=== PATIENT | male | born 1950 | race Caucasian/White ===

== ENCOUNTER 2020-03-28 15:08 | Observation (INO) | payer MEDICARE, BC ==
--- NOTE | 2020-03-28 15:36 | EDM.PDOC ---
ED HPI GENERAL MEDICAL PROBLEM - General Chief Complaint: General Stated Complaint: tachycardia Time Seen by Provider: 03/28/20 15:30 Source of Information: Reports: Patient History Limitations: Reports: No Limitations - History of Present Illness INITIAL COMMENTS - FREE TEXT/NARRATIVE: Patient comes to ER via EMS for complaint of sudden feeling of dizziness/nausea/sweaty that started around 12:30. No history of NV but does have history of high cholesterol/Afib/HTN. BP usually is good, noted today to be up to 141/92 when he checked it while not feeling good. Symptoms resolved in ambulance. Noted faster heart rate than usual. Around 100. Usually is 65-75. Denies any recent med changes/new supplements. Lula like usual self this morning. No other recent changes. Denies other illnesses. Father had mild MIs per patient. Nonsmoker. Usually has several vodka drinks per night. Denies illicit drug use. 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: EKG - Related Data Allergies Allergy/AdvReac Type Severity Reaction Status Date / Time No Known Allergies Allergy Verified 03/28/20 15:27 Home Meds: Home Meds Warfarin [Coumadin] 10 mg PO DAILY 08/11/13 [History] Digoxin 0.25 mg PO DAILY 03/28/20 [History] atorvaSTATin [Lipitor] 1 tab PO DAILY 03/28/20 [History] lisinopriL [Lisinopril] 1 tab PO DAILY 03/28/20 [History] Past Medical History Cardiovascular History: Reports: Afib, High Cholesterol, Hypertension Social & Family History - Family History Cardiac: Reports: NV (father) - Tobacco Use Smoking Status *Q: Never Smoker - Caffeine Use Caffeine Use: Reports: Coffee (one pot a day) - Alcohol Use Alcohol Use History: Yes Days Per Week of Alcohol Use: 7 Number of Drinks Per Day: 2 Total Drinks Per Week: 14 Alcohol Use in Last Twelve Months: Yes Alcohol Use Frequency: Daily - Recreational Drug Use Recreational Drug Use: No Drug Use in Last 12 Months: No ED ROS GENERAL - Review of Systems Review Of Systems: See Below Constitutional: Reports: Diaphoresis HEENT: Reports: No Symptoms, Glasses Respiratory: Reports: No Symptoms Cardiovascular: Reports: Lightheadedness, Palpitations. Denies: Chest Pain, Dyspnea on Exertion, Syncope GI/Abdominal: Reports: Nausea. Denies: Abdominal Pain, Constipation, Diarrhea, Vomiting : Reports: No Symptoms Musculoskeletal: Reports: Other (no acute change from baseline) Skin: Reports: Diaphoresis Neurological: Reports: Dizziness. Denies: Confusion, Headache, Numbness, Paresthesia, Syncope, Tingling, Tremors, Trouble Speaking, Difficulty Walking, Change in Speech, Gait Disturbance Psychiatric: Reports: No Symptoms Hematologic/Lymphatic: Reports: No Symptoms Immunologic: Reports: No Symptoms ED EXAM, GENERAL - Physical Exam Exam: See Below Exam Limited By: No Limitations General Appearance: Alert, WD/WN, No Apparent Distress, Anxious Eye Exam: Bilateral Eye: EOMI, PERRL Ears: Hearing Grossly Normal Nose: No: Nasal Deformity, Nasal Swelling, Nasal Drainage Throat/Mouth: Normal Lips, Normal Voice, No Airway Compromise Head: Atraumatic, Normocephalic Neck: Normal Inspection, Supple, Non-Tender, Full Range of Motion Respiratory/Chest: No Respiratory Distress, Lungs Clear, Normal Breath Sounds, No Accessory Muscle Use, Chest Non-Tender Cardiovascular: Tachycardia, Irregularly Irregular Peripheral Pulses: 2+: Radial (L), Radial (R) GI/Abdominal: Normal Bowel Sounds, Soft, Non-Tender, No Distention (Male) Exam: Deferred Rectal (Males) Exam: Deferred Back Exam: Normal Inspection Extremities: Normal Inspection, Non-Tender, No Pedal Edema, Normal Capillary Refill Neurological: Alert, Oriented, Normal Cognition, Normal Gait, No Motor/Sensory Deficits Psychiatric: Anxious Skin Exam: Warm, Dry, Intact, Normal Color EKG INTERPRETATION EKG Date: 03/28/20 Time: 15:13 Rhythm: A-Fib Rate (Beats/Min): 108 [place]man: Normal P-Wave: Absent QRS: Normal ST-T: Normal QT: Normal Comparison: NA - No Prior EKG Course - Vital Signs Last Recorded V/S: Last Vital Signs Temp 37.2 C 03/28/20 15:23 Pulse 111 H 03/28/20 15:23 Resp 19 03/28/20 15:23 BP 150/98 H 03/28/20 15:23 Pulse Ox 99 03/28/20 15:23 - Orders/Labs/Meds Orders: Active Orders 24 hr Category Date Time Status EKG Documentation Completion [RC] ASDIRECTED Care 03/28/20 15:12 Active Chest 2V [CR] Stat Exams 03/28/20 15:13 Taken CORONAVIRUS COVID-19 GIORGIO [MOLEC] Stat Lab 03/28/20 16:03 Ordered Sodium Chloride 0.9% [Saline Flush] Med 03/28/20 15:11 Active 10 ml FLUSH ASDIRECTED PRN Saline Lock Insert [OM.PC] Routine Oth 03/28/20 15:11 Ordered Medication Orders Sodium Chloride (Saline Flush) 10 ml FLUSH ASDIRECTED PRN PRN Reason: Keep Vein Open Labs: Laboratory Tests 03/28/20 03/28/20 03/28/20 Range/Units 15:15 15:15 15:15 WBC 8.9 (4.0-10.2) K/uL RBC 5.41 (4.33-5.41) M/uL Hgb 16.8 (13.1-16.8) g/dL Hct 48.6 (39.0-49.0) % MCV 89.8 (84.0-98.0) fL MCH 31.1 (28.2-33.3) pg MCHC 34.6 (31.7-36.0) g/dL RDW 13.7 (11.2-14.1) % Plt Count 183 (150-350) K/uL Neut % (Auto) 72.2 (45.0-80.0) % Lymph % (Auto) 16.0 (10.0-50.0) % [place] % (Auto) 10.7 (2.0-14.0) % Eos % (Auto) 0.9 (0.0-5.0) % Baso % (Auto) 0.2 (0.0-2.0) % Neut # (Auto) 6.39 (1.40-7.00) K/uL Lymph # (Auto) 1.42 (0.50-3.50) K/uL [place] # (Auto) 0.95 (0.00-1.00) K/uL Eos # (Auto) 0.08 (0.00-0.50) K/uL Baso # (Auto) 0.02 (0.00-0.20) K/uL INR D-Dimer, Quantitative < 100 (0-400) ng/mL Sodium 134 L (136-145) mmol/L Potassium 3.9 (3.5-5.1) mmol/L Chloride 98 (98-107) mmol/L Carbon Dioxide 23.4 (21.0-32.0) mmol/L BUN 21 H (7-18) mg/dL Creatinine 0.95 (0.51-1.17) mg/dL Est Cr Clr Drug Dosing TNP Estimated GFR (MDRD) > 60 mL/min Glucose 130 H (74-106) mg/dL Calcium 9.1 (8.5-10.1) mg/dL Magnesium 2.0 (1.8-2.4) mg/dL Total Bilirubin 0.6 (0.2-1.0) mg/dL AST 27 (15-37) U/L ALT 48 (12-78) U/L Alkaline Phosphatase 78 (46-116) IU/L Troponin I 0.000 (0.000-0.056) ng/mL NT-Pro-B Natriuret Pep 550 H (0-125) pg/mL Total Protein 7.7 (6.4-8.2) g/dL Albumin 4.4 (3.4-5.0) g/dL Digoxin (0.90-2.00) ng/mL 03/28/20 03/28/20 Range/Units 15:15 15:44 WBC (4.0-10.2) K/uL RBC (4.33-5.41) M/uL Hgb (13.1-16.8) g/dL Hct (39.0-49.0) % MCV (84.0-98.0) fL MCH (28.2-33.3) pg MCHC (31.7-36.0) g/dL RDW (11.2-14.1) % Plt Count (150-350) K/uL Neut % (Auto) (45.0-80.0) % Lymph % (Auto) (10.0-50.0) % [place] % (Auto) (2.0-14.0) % Eos % (Auto) (0.0-5.0) % Baso % (Auto) (0.0-2.0) % Neut # (Auto) (1.40-7.00) K/uL Lymph # (Auto) (0.50-3.50) K/uL [place] # (Auto) (0.00-1.00) K/uL Eos # (Auto) (0.00-0.50) K/uL Baso # (Auto) (0.00-0.20) K/uL INR 3.7 D-Dimer, Quantitative (0-400) ng/mL Sodium (136-145) mmol/L Potassium (3.5-5.1) mmol/L Chloride (98-107) mmol/L Carbon Dioxide (21.0-32.0) mmol/L BUN (7-18) mg/dL Creatinine (0.51-1.17) mg/dL Est Cr Clr Drug Dosing Estimated GFR (MDRD) mL/min Glucose (74-106) mg/dL Calcium (8.5-10.1) mg/dL Magnesium (1.8-2.4) mg/dL Total Bilirubin (0.2-1.0) mg/dL AST (15-37) U/L ALT (12-78) U/L Alkaline Phosphatase (46-116) IU/L Troponin I (0.000-0.056) ng/mL NT-Pro-B Natriuret Pep (0-125) pg/mL Total Protein (6.4-8.2) g/dL Albumin (3.4-5.0) g/dL Digoxin 0.52 L (0.90-2.00) ng/mL Meds: Medications Generic Name Dose Route Start Last Admin Trade Name Freq PRN Reason Stop Dose Admin Sodium Chloride 10 ml 03/28/20 15:11 Saline Flush FLUSH ASDIRECTED PRN Keep Vein Open Discontinued Medications Generic Name Dose Route Start Last Admin Trade Name Freq PRN Reason Stop Dose Admin Digoxin 250 mcg 03/28/20 18:20 Lanoxin PO 03/28/20 18:21 ONETIME ONE Diltiazem HCl 60 mg 03/28/20 15:39 03/28/20 17:41 Cardizem PO 03/28/20 15:40 Not Given ONETIME ONE - Re-Assessments/Exams Free Text/Narrative Re-Assessment/Exam: 03/28/20 15:38 Labs/xray/EKG ordered. PO Cardizem ordered. Patient currently feels better. 03/28/20 19:26 Prolonged time in ER due to multiple ER patients and waiting for room to be cleaned prior to admission to observation. Patient noted to have INR 3.7. subtherapeutic Dig level at 0.52 Pro BNP 550 Trop/CBC normal. Xray unremarkable for acute changes/infiltrates. Received PO dose Cardizem shortly after arrival. Later a dose of Digoxin was added. Patient continuing to feel improved but heart rate at times around 100/BP mildly elevated. Will admit for serial troponins/rule out NV and also to get Dig into therapeutic range. Departure - Departure Time of Disposition: 19:29 Disposition: Refer to Observation Condition: Good Clinical Impression: Atrial fibrillation with RVR - Discharge Information *PRESCRIPTION DRUG MONITORING PROGRAM REVIEWED*: Not Applicable *COPY OF PRESCRIPTION DRUG MONITORING REPORT IN PATIENT YAEL: Not Applicable Sepsis Event Note (ED) - Evaluation Sepsis Screening Result: No Definite Risk - Focused Exam Vital Signs: Vital Signs Temp Pulse Resp BP Pulse Ox 03/28/20 15:23 37.2 C 111 H 19 150/98 H 99 - Problem List & Annotations (1) Atrial fibrillation with RVR SNOMED Code(s): 569093208951301 Code(s): I48.91 - UNSPECIFIED ATRIAL FIBRILLATION Status: Acute Priority: High Current Visit: Yes Annotation/Comment:: Afib with RVR. Improved at this time. Given nausea/sweaty/dizzy sensation will perform r/o NV protocol with serial troponins and telemetry. Dig level subtherapeutic. (2) HTN (hypertension) SNOMED Code(s): 09210328 Code(s): I10 - ESSENTIAL (PRIMARY) HYPERTENSION Status: Chronic Priority: Medium Current Visit: Yes Annotation/Comment:: observe trends Qualifiers: Hypertension type: essential hypertension Qualified Code(s): I10 - Essential (primary) hypertension (3) Hyperlipidemia SNOMED Code(s): 72959309 Code(s): E78.5 - HYPERLIPIDEMIA, UNSPECIFIED Status: Chronic Priority: Low Current Visit: No Annotation/Comment:: under therapy Qualifiers: Hyperlipidemia type: unspecified Qualified Code(s): E78.5 - Hyperlipidemia, unspecified - Problem List Review Problem List Initiated/Reviewed/Updated: Yes - My Orders Last 24 Hours: My Active Orders 03/28/20 15:11 Sodium Chloride 0.9% [Saline Flush] 10 ml FLUSH ASDIRECTED PRN Saline Lock Insert [OM.PC] Routine 03/28/20 15:12 EKG Documentation Completion [RC] ASDIRECTED 03/28/20 15:13 Chest 2V [CR] Stat 10/09/20 16:03 CORONAVIRUS COVID-19 GIORGIO [MOLEC] Stat - Assessment/Plan Admission H&P: Please use this note as an admission H&P Last 24 Hours: My Active Orders 03/28/20 15:11 Sodium Chloride 0.9% [Saline Flush] 10 ml FLUSH ASDIRECTED PRN Saline Lock Insert [OM.PC] Routine 03/28/20 15:12 EKG Documentation Completion [RC] ASDIRECTED 03/28/20 15:13 Chest 2V [CR] Stat 03/28/20 16:03 CORONAVIRUS COVID-19 GIORGIO [MOLEC] Stat Assessment:: as above. Stable and suitable for general supervision. Plan: as above. Anticipate 24-48 hour stay while working on therapeutic dig level as well as performing serial troponins.
[2020-03-28] MEDS ORDERED: Diltiazem IR 60 MG Tab PO ONE (15:39)
[2020-03-28 15:59] LABS: CHLORIDE,CL 98 mmol/L (98-107); SODIUM,NA 134 mmol/L (136-145)
[2020-03-28] MEDS ORDERED: Digoxin 250 MCG Tab PO ONE ×2 (18:20→22:00)
[2020-03-29] MEDS ORDERED: Lisinopril 10 MG Tab PO ONE (00:08)
[2020-03-29] MEDS ORDERED: Digoxin 250 MCG Tab PO ONE ×3 (08:00→22:00)
[2020-03-29] MEDS ORDERED: Sodium Chloride 0.9% 1,000 ML IV ONE (08:25)
[2020-03-29 08:56] LABS: CHLORIDE,CL 101 mmol/L (98-107); SODIUM,NA 138 mmol/L (136-145)
[2020-03-29] MEDS ORDERED: Sodium Chloride 0.9% 1,000 ML IV SCH (09:30)
[2020-03-29] MEDS: Lisinopril 10 MG Tab PO SCH (09:35)
[2020-03-29] MEDS: Sodium Chloride 0.9% 10 ML Syringe FLUSH PRN (09:37)
--- NOTE | 2020-03-29 14:18 | PCM.PN ---
- General Info Date of Service: 03/29/20 Admission Dx/Problem (Free Text): Admitted for further evaluation of chest pain episode along with Afib with RVR. Subjective Update: Patient feeling well at this time. No acute complaints. Functional Status: Reports: Pain Controlled, Tolerating Diet, Ambulating, Urinating. Denies: New Symptoms Pain Score: 0 - Review of Systems General: Reports: No Symptoms HEENT: Reports: No Symptoms Pulmonary: Reports: No Symptoms Cardiovascular: Reports: No Symptoms. Denies: Palpitations Gastrointestinal: Reports: No Symptoms Genitourinary: Reports: No Symptoms Musculoskeletal: Reports: No Symptoms Skin: Reports: No Symptoms Neurological: Reports: No Symptoms Psychiatric: Reports: No Symptoms - Patient Data Vitals - Most Recent: Last Vital Signs Temp 35.9 C L 03/29/20 12:00 Pulse 84 03/29/20 12:00 Resp 14 03/29/20 12:00 BP 133/86 03/29/20 12:00 Pulse Ox 98 03/29/20 09:33 Weight - Most Recent: 86.183 kg I&O - Last 24 Hours: Intake & Output 03/28/20 03/29/20 03/29/20 22:59 06:59 14:59 Intake Total 600 Output Total 0 Balance 0 600 Lab Results Last 24 Hours: Laboratory Results - last 24 hr 03/28/20 03/28/20 03/28/20 Range/Units 15:15 15:15 15:15 WBC 8.9 (4.0-10.2) K/uL RBC 5.41 (4.33-5.41) M/uL Hgb 16.8 (13.1-16.8) g/dL Hct 48.6 (39.0-49.0) % MCV 89.8 (84.0-98.0) fL MCH 31.1 (28.2-33.3) pg MCHC 34.6 (31.7-36.0) g/dL RDW 13.7 (11.2-14.1) % Plt Count 183 (150-350) K/uL Neut % (Auto) 72.2 (45.0-80.0) % Lymph % (Auto) 16.0 (10.0-50.0) % [place] % (Auto) 10.7 (2.0-14.0) % Eos % (Auto) 0.9 (0.0-5.0) % Baso % (Auto) 0.2 (0.0-2.0) % Neut # (Auto) 6.39 (1.40-7.00) K/uL Lymph # (Auto) 1.42 (0.50-3.50) K/uL [place] # (Auto) 0.95 (0.00-1.00) K/uL Eos # (Auto) 0.08 (0.00-0.50) K/uL Baso # (Auto) 0.02 (0.00-0.20) K/uL INR D-Dimer, Quantitative < 100 (0-400) ng/mL Sodium 134 L (136-145) mmol/L Potassium 3.9 (3.5-5.1) mmol/L Chloride 98 (98-107) mmol/L Carbon Dioxide 23.4 (21.0-32.0) mmol/L BUN 21 H (7-18) mg/dL Creatinine 0.95 (0.51-1.17) mg/dL Est Cr Clr Drug Dosing TNP Estimated GFR (MDRD) > 60 mL/min Glucose 130 H (74-106) mg/dL Calcium 9.1 (8.5-10.1) mg/dL Magnesium 2.0 (1.8-2.4) mg/dL Total Bilirubin 0.6 (0.2-1.0) mg/dL AST 27 (15-37) U/L ALT 48 (12-78) U/L Alkaline Phosphatase 78 (46-116) IU/L Troponin I 0.000 (0.000-0.056) ng/mL NT-Pro-B Natriuret Pep 550 H (0-125) pg/mL Total Protein 7.7 (6.4-8.2) g/dL Albumin 4.4 (3.4-5.0) g/dL Specimen Type Urine Color Urine Appearance Urine pH (5.0-9.0) Ur Specific [place] (1.005-1.030) Urine Protein (NEGATIVE) mg/dL Urine Glucose (UA) (NEGATIVE) mg/dL Urine Ketones (NEGATIVE) mg/dL Urine Occult Blood (NEGATIVE) Urine Nitrite (NEGATIVE) Urine Bilirubin (NEGATIVE) Urine Urobilinogen (0.2-1.0) E.U./dL Ur Leukocyte Esterase (NEGATIVE) Digoxin (0.90-2.00) ng/mL SARS-CoV-2 RNA (GIORGIO) (NEGATIVE) 03/28/20 03/28/20 03/28/20 Range/Units 15:15 15:44 18:46 WBC (4.0-10.2) K/uL RBC (4.33-5.41) M/uL Hgb (13.1-16.8) g/dL Hct (39.0-49.0) % MCV (84.0-98.0) fL MCH (28.2-33.3) pg MCHC (31.7-36.0) g/dL RDW (11.2-14.1) % Plt Count (150-350) K/uL Neut % (Auto) (45.0-80.0) % Lymph % (Auto) (10.0-50.0) % [place] % (Auto) (2.0-14.0) % Eos % (Auto) (0.0-5.0) % Baso % (Auto) (0.0-2.0) % Neut # (Auto) (1.40-7.00) K/uL Lymph # (Auto) (0.50-3.50) K/uL [place] # (Auto) (0.00-1.00) K/uL Eos # (Auto) (0.00-0.50) K/uL Baso # (Auto) (0.00-0.20) K/uL INR 3.7 D-Dimer, Quantitative (0-400) ng/mL Sodium (136-145) mmol/L Potassium (3.5-5.1) mmol/L Chloride (98-107) mmol/L Carbon Dioxide (21.0-32.0) mmol/L BUN (7-18) mg/dL Creatinine (0.51-1.17) mg/dL Est Cr Clr Drug Dosing Estimated GFR (MDRD) mL/min Glucose (74-106) mg/dL Calcium (8.5-10.1) mg/dL Magnesium (1.8-2.4) mg/dL Total Bilirubin (0.2-1.0) mg/dL AST (15-37) U/L ALT (12-78) U/L Alkaline Phosphatase (46-116) IU/L Troponin I (0.000-0.056) ng/mL NT-Pro-B Natriuret Pep (0-125) pg/mL Total Protein (6.4-8.2) g/dL Albumin (3.4-5.0) g/dL Specimen Type Urinvoid Urine Color Yellow Urine Appearance Clear Urine pH 5.5 (5.0-9.0) Ur Specific [place] 1.010 (1.005-1.030) Urine Protein Negative (NEGATIVE) mg/dL Urine Glucose (UA) Negative (NEGATIVE) mg/dL Urine Ketones Negative (NEGATIVE) mg/dL Urine Occult Blood Negative (NEGATIVE) Urine Nitrite Negative (NEGATIVE) Urine Bilirubin Negative (NEGATIVE) Urine Urobilinogen 0.2 (0.2-1.0) E.U./dL Ur Leukocyte Esterase Negative (NEGATIVE) Digoxin 0.52 L (0.90-2.00) ng/mL SARS-CoV-2 RNA (GIORGIO) (NEGATIVE) 03/28/20 03/29/20 03/29/20 Range/Units 21:00 07:50 07:50 WBC 9.0 (4.0-10.2) K/uL RBC 5.84 H (4.33-5.41) M/uL Hgb 18.0 H (13.1-16.8) g/dL Hct 53.3 H (39.0-49.0) % MCV 91.3 (84.0-98.0) fL MCH 30.8 (28.2-33.3) pg MCHC 33.8 (31.7-36.0) g/dL RDW 13.9 (11.2-14.1) % Plt Count 168 (150-350) K/uL Neut % (Auto) 69.1 (45.0-80.0) % Lymph % (Auto) 16.6 (10.0-50.0) % [place] % (Auto) 12.5 (2.0-14.0) % Eos % (Auto) 1.6 (0.0-5.0) % Baso % (Auto) 0.2 (0.0-2.0) % Neut # (Auto) 6.21 (1.40-7.00) K/uL Lymph # (Auto) 1.49 (0.50-3.50) K/uL [place] # (Auto) 1.12 H (0.00-1.00) K/uL Eos # (Auto) 0.14 (0.00-0.50) K/uL Baso # (Auto) 0.02 (0.00-0.20) K/uL INR D-Dimer, Quantitative (0-400) ng/mL Sodium 138 (136-145) mmol/L Potassium 3.9 (3.5-5.1) mmol/L Chloride 101 (98-107) mmol/L Carbon Dioxide 26.8 (21.0-32.0) mmol/L BUN 12 (7-18) mg/dL Creatinine 0.82 (0.51-1.17) mg/dL Est Cr Clr Drug Dosing 90.26 Estimated GFR (MDRD) > 60 mL/min Glucose 105 (74-106) mg/dL Calcium 9.6 (8.5-10.1) mg/dL Magnesium (1.8-2.4) mg/dL Total Bilirubin (0.2-1.0) mg/dL AST (15-37) U/L ALT (12-78) U/L Alkaline Phosphatase (46-116) IU/L Troponin I 0.000 0.000 (0.000-0.056) ng/mL NT-Pro-B Natriuret Pep (0-125) pg/mL Total Protein (6.4-8.2) g/dL Albumin (3.4-5.0) g/dL Specimen Type Urine Color Urine Appearance Urine pH (5.0-9.0) Ur Specific [place] (1.005-1.030) Urine Protein (NEGATIVE) mg/dL Urine Glucose (UA) (NEGATIVE) mg/dL Urine Ketones (NEGATIVE) mg/dL Urine Occult Blood (NEGATIVE) Urine Nitrite (NEGATIVE) Urine Bilirubin (NEGATIVE) Urine Urobilinogen (0.2-1.0) E.U./dL Ur Leukocyte Esterase (NEGATIVE) Digoxin (0.90-2.00) ng/mL SARS-CoV-2 RNA (GIORGIO) (NEGATIVE) 03/29/20 Range/Units 09:15 WBC (4.0-10.2) K/uL RBC (4.33-5.41) M/uL Hgb (13.1-16.8) g/dL Hct (39.0-49.0) % MCV (84.0-98.0) fL MCH (28.2-33.3) pg MCHC (31.7-36.0) g/dL RDW (11.2-14.1) % Plt Count (150-350) K/uL Neut % (Auto) (45.0-80.0) % Lymph % (Auto) (10.0-50.0) % [place] % (Auto) (2.0-14.0) % Eos % (Auto) (0.0-5.0) % Baso % (Auto) (0.0-2.0) % Neut # (Auto) (1.40-7.00) K/uL Lymph # (Auto) (0.50-3.50) K/uL [place] # (Auto) (0.00-1.00) K/uL Eos # (Auto) (0.00-0.50) K/uL Baso # (Auto) (0.00-0.20) K/uL INR D-Dimer, Quantitative (0-400) ng/mL Sodium (136-145) mmol/L Potassium (3.5-5.1) mmol/L Chloride (98-107) mmol/L Carbon Dioxide (21.0-32.0) mmol/L BUN (7-18) mg/dL Creatinine (0.51-1.17) mg/dL Est Cr Clr Drug Dosing Estimated GFR (MDRD) mL/min Glucose (74-106) mg/dL Calcium (8.5-10.1) mg/dL Magnesium (1.8-2.4) mg/dL Total Bilirubin (0.2-1.0) mg/dL AST (15-37) U/L ALT (12-78) U/L Alkaline Phosphatase (46-116) IU/L Troponin I (0.000-0.056) ng/mL NT-Pro-B Natriuret Pep (0-125) pg/mL Total Protein (6.4-8.2) g/dL Albumin (3.4-5.0) g/dL Specimen Type Urine Color Urine Appearance Urine pH (5.0-9.0) Ur Specific [place] (1.005-1.030) Urine Protein (NEGATIVE) mg/dL Urine Glucose (UA) (NEGATIVE) mg/dL Urine Ketones (NEGATIVE) mg/dL Urine Occult Blood (NEGATIVE) Urine Nitrite (NEGATIVE) Urine Bilirubin (NEGATIVE) Urine Urobilinogen (0.2-1.0) E.U./dL Ur Leukocyte Esterase (NEGATIVE) Digoxin (0.90-2.00) ng/mL SARS-CoV-2 RNA (GIORGIO) Negative (NEGATIVE) Med Orders - Current: Current Medications Sodium Chloride (Normal Saline) 1,000 mls @ 150 mls/hr IV ASDIRECTED JESUS Last Admin: 03/29/20 10:43 Dose: 150 mls/hr Documented by: Lisinopril (Prinivil) 10 mg PO DAILY [facility] Last Admin: 03/29/20 09:35 Dose: 10 mg Documented by: Sodium Chloride (Saline Flush) 10 ml FLUSH ASDIRECTED PRN PRN Reason: Keep Vein Open Last Admin: 03/29/20 09:37 Dose: 10 ml Documented by: Discontinued Medications Digoxin (Lanoxin) 250 mcg PO ONETIME ONE Stop: 03/28/20 18:21 Last Admin: 03/28/20 21:49 Dose: Not Given Documented by: Digoxin (Lanoxin) 250 mcg PO ONETIME ONE Stop: 03/28/20 22:01 Last Admin: 03/28/20 22:16 Dose: 250 mcg Documented by: Digoxin (Lanoxin) 250 mcg PO ONETIME ONE Stop: 03/29/20 08:01 Last Admin: 03/29/20 09:30 Dose: 250 mcg Documented by: Digoxin (Lanoxin) 250 mcg PO ONETIME ONE Stop: 03/29/20 14:01 Diltiazem HCl (Cardizem) 60 mg PO ONETIME ONE Stop: 03/28/20 15:40 Last Admin: 03/28/20 17:41 Dose: Not Given Documented by: Sodium Chloride (Normal Saline) 1,000 mls @ 999 mls/hr IV .BOLUS ONE Stop: 03/29/20 09:25 Last Admin: 03/29/20 09:35 Dose: 999 mls/hr Documented by: Lisinopril (Prinivil) 10 mg PO ONETIME ONE Stop: 03/29/20 00:09 Last Admin: 03/29/20 00:22 Dose: 10 mg Documented by: - Exam General: Alert, Oriented, Cooperative, No Acute Distress HEENT: Pupils Equal, Pupils Reactive, EOMI, Mucous Membr. Moist/[place] Neck: Supple Lungs: Clear to Auscultation, Normal Respiratory Effort Cardiovascular: No Murmurs, Irregular Rhythm GI/Abdominal Exam: Soft, Non-Tender (Male) Exam: Deferred Back Exam: No: Muscle Spasm Extremities: Normal Inspection Skin: Warm, Dry Neurological: No New Focal Deficit Psy/Mental Status: Alert, Normal Affect, Normal Mood Sepsis Event Note - Evaluation Sepsis Screening Result: No Definite Risk - Focused Exam Vital Signs: Vital Signs Temp Pulse Pulse Resp BP BP Pulse Ox 03/29/20 12:00 35.9 C L 84 14 133/86 03/29/20 09:35 118/88 03/29/20 09:33 36.1 C 76 16 118/88 98 03/29/20 09:30 79 03/29/20 06:16 36.7 C 87 15 143/84 H 98 - Problem List & Annotations (1) Atrial fibrillation with RVR SNOMED Code(s): 654619647254977 Code(s): I48.91 - UNSPECIFIED ATRIAL FIBRILLATION Status: Acute Priority: High Current Visit: Yes Annotation/Comment:: Afib with RVR. Improved at time of admission. Telemetry overnight shows continued Afib with normal rate. Given nausea/sweaty/dizzy sensation performed r/o VT protocol with serial troponins and telemetry. Troponins normal level. No return of chest pain complaints. Patient has had episodes previously with AFib/RVR but they responded favorably with rest within 1-2 hours. This one was more prolonged and was more symptomatic. Dig level subtherapeutic. (2) HTN (hypertension) SNOMED Code(s): 07613383 Code(s): I10 - ESSENTIAL (PRIMARY) HYPERTENSION Status: Chronic Priority: Medium Current Visit: Yes Qualifiers: Hypertension type: essential hypertension Qualified Code(s): I10 - Essential (primary) hypertension Annotation/Comment:: observe trends. Improved since admission (3) Hyperlipidemia SNOMED Code(s): 73237101 Code(s): E78.5 - HYPERLIPIDEMIA, UNSPECIFIED Status: Chronic Priority: Low Current Visit: No Qualifiers: Hyperlipidemia type: unspecified Qualified Code(s): E78.5 - Hyperlipidemia, unspecified Annotation/Comment:: under therapy (4) Elevated INR SNOMED Code(s): 114994738 Code(s): R79.1 - ABNORMAL COAGULATION PROFILE Status: Acute Priority: Medium Current Visit: Yes Annotation/Comment:: Warfarin on hold at this time. - Problem List Review Problem List Initiated/Reviewed/Updated: Yes - My Orders Last 24 Hours: My Active Orders 03/28/20 15:11 Sodium Chloride 0.9% [Saline Flush] 10 ml FLUSH ASDIRECTED PRN Saline Lock Insert [OM.PC] Routine 03/28/20 15:12 EKG Documentation Completion [RC] ASDIRECTED 03/28/20 15:13 Chest 2V [CR] Stat 03/28/20 19:36 Patient Status [ADT] Routine May Shower [RC] Up ad Pearl [RC] Vital Signs [RC] Q4HR 03/28/20 19:37 Oxygen Therapy [RC] PRN Pulse Oximetry [RC] PRN 03/28/20 19:42 Telemetry Monitoring [Cardiac Monitoring] [RC] Q2HR 03/28/20 21:44 Code Status [Resuscitation Status] Routine 03/29/20 Breakfast Heart Healthy Diet [DIET] 03/29/20 08:00 lisinopriL [Prinivil] 10 mg PO DAILY 03/29/20 09:30 Sodium Chloride 0.9% [Normal Saline] 1,000 ml IV ASDIRECTED 03/29/20 12:24 EKG Documentation Completion [RC] ASDIRECTED 03/29/20 17:00 DIGOXIN [CHEM] Routine EKG 12 Lead [EK] Routine 03/30/20 05:11 DIGOXIN [CHEM] AM 03/30/20 05:15 BASIC METABOLIC PANEL,BMP [CHEM] AM CBC WITH AUTO DIFF [HEME] AM - Assessment Assessment:: as above - Plan Plan:: Recheck INR in AM. Recheck Dig level this afternoon and in AM to see if patient achieve's therapeutic window. Anticipate likely discharge home tomorrow if Dig level improves.
--- NOTE | 2020-03-29 17:57 | PCM.SN.2 ---
- Free Text/Narrative Note: EKG shows continued AFib, rate 69. No evidence of acute ischemia.
[2020-03-30] MEDS: Lisinopril 10 MG Tab PO SCH (07:19)
[2020-03-30] MEDS: Sodium Chloride 0.9% 10 ML Syringe FLUSH PRN (07:22)
[2020-03-30 08:29] LABS: CHLORIDE,CL 104 mmol/L (98-107); SODIUM,NA 141 mmol/L (136-145)
--- NOTE | 2020-03-30 10:25 | PCM.DCSUM1 ---
Discharge Summary - Hospital Course Brief History: Patient admitted for further evaluation for complaint of chest pain and noted Afib with RVR Diagnosis: Stroke: No - Discharge Data Discharge Date: 03/30/20 Discharge Disposition: Home, Self-Care 01 Condition: Good - Referral to Home Health Primary Care Physician: PCP None - Discharge Diagnosis/Problem(s) (1) Atrial fibrillation with RVR SNOMED Code(s): 979885268632852 ICD Code: I48.91 - UNSPECIFIED ATRIAL FIBRILLATION Status: Acute Priority: High Current Visit: Yes Problem Details: Afib with RVR. Improved at time of admission. Telemetry showed continued Afib with normal rate. Given nausea/sweaty/dizzy sensation performed r/o NC protocol with serial troponins and telemetry. Troponins normal level. No return of chest pain complaints. Patient has had episodes previously with AFib/RVR but they responded favorably with rest within 1-2 hours. This one was more prolonged and was more symptomatic. Dig level subtherapeutic at time of observation admission (2) HTN (hypertension) SNOMED Code(s): 12449626 ICD Code: I10 - ESSENTIAL (PRIMARY) HYPERTENSION Status: Chronic Priority: Medium Current Visit: Yes Problem Details: Has been running a bit elevated. Patient noted to be stressed/worried about the current Covid epidemic and had been thinking he had picked up the infection, suspect stress and anxiety is contributing. He may need medication adjustment however and is encouraged to check his own BP at home/keep diary and follow up closely with his primary provider. Qualifiers: Hypertension type: essential hypertension Qualified Code(s): I10 - Essential (primary) hypertension (3) Hyperlipidemia SNOMED Code(s): 99701901 ICD Code: E78.5 - HYPERLIPIDEMIA, UNSPECIFIED Status: Chronic Priority: Low Current Visit: No Problem Details: under therapy Qualifiers: Hyperlipidemia type: unspecified Qualified Code(s): E78.5 - Hyperlipidemia, unspecified (4) Elevated INR SNOMED Code(s): 582592365 ICD Code: R79.1 - ABNORMAL COAGULATION PROFILE Status: Acute Priority: Medium Current Visit: Yes Problem Details: INR 2.1 May resume Warfarin - Patient Summary/Data Hospital Course: Patient admitted observation. Rule out NC protocol initiated. Troponins negative. Patient remained asymptomatic. Digoxin given and level returned to therapeutic range. Warfarin held and INR returned to therapeutic range. Patient insisted on Covid testing which was performed. Patient very concerned about possibly having Covid and also about his elevated BP. When it was approached that he appeared to be stressed about the two things and that the stress could be contributing to the BP rise, he denied feeling any anxiety or extra stress. Multiple conversations were had concerning roasterman planning for follow up to check on Dig levels/INR to allow dosage adjustment. Patient admits that he has not wanted to do that in past. Will also need ongoing follow up for HTN and medication adjustment if he continues to run high. Patient is agreeable with plan at this time. - Patient Instructions Diet: Heart Healthy Diet (lower carb lower processed food) Activity: As Tolerated Driving: May Drive Today Showering/Bathing: May Shower Other/Special Instructions: Follow up regularly for ongoing monitoring of your Digoxin and INR level as well as blood pressure while your medication doses are adjusted in order to keep things within therapeutic range. We will have you take an extra dose of Digoxin on Mondays, Wednesdays, and Fridays. You will need to have the Digoxin level rechecked to see if this helps as it was too low when you came in. Your INR was too high, so they may need to change the dose on the Warfarin. Your blood pressure also ran a bit high as we discussed. Check your blood pressures at home and keep a diary. Check randomly throughout day as BP can vary on a 24 hour rhythm. Bring the diary to your follow up appointments. You may need to have your blood pressure meds adjusted if they continue to run high after you are discharged home. Once you are home and away from being in the hospital they may improve on their own. Follow up otherwise as needed if you have problems/concerns. - Discharge Plan *PRESCRIPTION DRUG MONITORING PROGRAM REVIEWED*: Not Applicable *COPY OF PRESCRIPTION DRUG MONITORING REPORT IN PATIENT YEAL: Not Applicable Prescriptions/Med Rec: Ubidecarenone [Coenzyme Q10] 100 mg PO DAILY #90 cap Digoxin 125 mcg PO ASDIRECTED #20 tablet Vitamin D3/Vitamin K2 (Mk4) [K2 Plus D3 Tablet] 1 each PO DAILY #90 tablet Magnesium 250 mg PO DAILY 3 Days #90 tablet Home Medications: Home Meds Warfarin [Coumadin] 10 mg PO DAILY 08/11/13 [History] Digoxin 0.25 mg PO DAILY 03/28/20 [History] atorvaSTATin [Lipitor] 1 tab PO DAILY 03/28/20 [History] lisinopriL [Lisinopril] 1 tab PO DAILY 03/28/20 [History] Aspirin 81 mg PO DAILY 03/29/20 [History] Digoxin 125 mcg PO ASDIRECTED #20 tablet 03/30/20 [Rx] Magnesium 250 mg PO DAILY 3 Days #90 tablet 03/30/20 [Rx] Ubidecarenone [Coenzyme Q10] 100 mg PO DAILY #90 cap 03/30/20 [Rx] Vitamin D3/Vitamin K2 (Mk4) [K2 Plus D3 Tablet] 1 each PO DAILY #90 tablet 03/30/20 [Rx] Forms: ED Department Discharge Referrals: Sergei Cano PA [Physician Rules Examiner] - - Discharge Summary/Plan Comment DC Time >30 min.: No - General Info Date of Service: 03/30/20 Admission Dx/Problem (Free Text: Admitted for further evaluation of chest pain episode along with Afib with RVR. Subjective Update: Patient feeling well at this time. No acute complaints. Functional Status: Reports: Pain Controlled, Tolerating Diet, Ambulating, Urinating. Denies: New Symptoms - Review of Systems General: Reports: No Symptoms HEENT: Reports: No Symptoms Pulmonary: Reports: No Symptoms Cardiovascular: Reports: No Symptoms Gastrointestinal: Reports: No Symptoms Genitourinary: Reports: No Symptoms Musculoskeletal: Reports: No Symptoms Skin: Reports: No Symptoms Neurological: Reports: No Symptoms Psychiatric: Reports: No Symptoms - Patient Data Vitals - Most Recent: Last Vital Signs Temp 37.1 C 03/30/20 07:17 Pulse 80 03/30/20 07:17 Resp 18 03/30/20 07:17 BP 137/94 H 03/30/20 07:19 Pulse Ox 97 03/30/20 07:17 Weight - Most Recent: 86.183 kg I&O - Last 24 hours: Intake & Output 03/29/20 03/30/20 03/30/20 22:59 06:59 14:59 Intake Total 2705 450 Balance 2705 450 Lab Results - Last 24 hrs: Laboratory Results - last 24 hr 03/29/20 03/29/20 03/30/20 Range/Units 09:15 21:00 07:30 WBC (4.0-10.2) K/uL RBC (4.33-5.41) M/uL Hgb (13.1-16.8) g/dL Hct (39.0-49.0) % MCV (84.0-98.0) fL MCH (28.2-33.3) pg MCHC (31.7-36.0) g/dL RDW (11.2-14.1) % Plt Count (150-350) K/uL Neut % (Auto) (45.0-80.0) % Lymph % (Auto) (10.0-50.0) % Warren % (Auto) (2.0-14.0) % Eos % (Auto) (0.0-5.0) % Baso % (Auto) (0.0-2.0) % Neut # (Auto) (1.40-7.00) K/uL Lymph # (Auto) (0.50-3.50) K/uL Warren # (Auto) (0.00-1.00) K/uL Eos # (Auto) (0.00-0.50) K/uL Baso # (Auto) (0.00-0.20) K/uL PT (9.5-12.0) SEC INR Sodium 141 (136-145) mmol/L Potassium 4.1 (3.5-5.1) mmol/L Chloride 104 (98-107) mmol/L Carbon Dioxide 29.7 (21.0-32.0) mmol/L BUN 9 (7-18) mg/dL Creatinine 0.82 (0.51-1.17) mg/dL Est Cr Clr Drug Dosing 90.26 mL/min Estimated GFR (MDRD) > 60 mL/min Glucose 98 (74-106) mg/dL Calcium 9.5 (8.5-10.1) mg/dL Troponin I 0.000 (0.000-0.056) ng/mL Digoxin 0.83 L 1.05 (0.90-2.00) ng/mL SARS-CoV-2 RNA (GIORGIO) Negative (NEGATIVE) 03/30/20 03/30/20 Range/Units 07:30 07:30 WBC 7.9 (4.0-10.2) K/uL RBC 5.72 H (4.33-5.41) M/uL Hgb 17.8 H (13.1-16.8) g/dL Hct 52.7 H (39.0-49.0) % MCV 92.1 (84.0-98.0) fL MCH 31.1 (28.2-33.3) pg MCHC 33.8 (31.7-36.0) g/dL RDW 14.1 (11.2-14.1) % Plt Count 168 (150-350) K/uL Neut % (Auto) 60.9 (45.0-80.0) % Lymph % (Auto) 23.4 (10.0-50.0) % [place] % (Auto) 13.6 (2.0-14.0) % Eos % (Auto) 2.0 (0.0-5.0) % Baso % (Auto) 0.1 (0.0-2.0) % Neut # (Auto) 4.80 (1.40-7.00) K/uL Lymph # (Auto) 1.84 (0.50-3.50) K/uL Warren # (Auto) 1.07 H (0.00-1.00) K/uL Eos # (Auto) 0.16 (0.00-0.50) K/uL Baso # (Auto) 0.01 (0.00-0.20) K/uL PT 20.2 H (9.5-12.0) SEC INR 2.1 Sodium (136-145) mmol/L Potassium (3.5-5.1) mmol/L Chloride (98-107) mmol/L Carbon Dioxide (21.0-32.0) mmol/L BUN (7-18) mg/dL Creatinine (0.51-1.17) mg/dL Est Cr Clr Drug Dosing mL/min Estimated GFR (MDRD) mL/min Glucose (74-106) mg/dL Calcium (8.5-10.1) mg/dL Troponin I (0.000-0.056) ng/mL Digoxin (0.90-2.00) ng/mL SARS-CoV-2 RNA (GIORGIO) (NEGATIVE) Med Orders - Current: Current Medications Lisinopril (Prinivil) 10 mg PO DAILY JEUSS Last Admin: 03/30/20 07:19 Dose: 10 mg Documented by: Sodium Chloride (Saline Flush) 10 ml FLUSH ASDIRECTED PRN PRN Reason: Keep Vein Open Last Admin: 03/30/20 07:22 Dose: 10 ml Documented by: Discontinued Medications Digoxin (Lanoxin) 250 mcg PO ONETIME ONE Stop: 03/28/20 18:21 Last Admin: 03/28/20 21:49 Dose: Not Given Documented by: Digoxin (Lanoxin) 250 mcg PO ONETIME ONE Stop: 03/28/20 22:01 Last Admin: 03/28/20 22:16 Dose: 250 mcg Documented by: Digoxin (Lanoxin) 250 mcg PO ONETIME ONE Stop: 03/29/20 08:01 Last Admin: 03/29/20 09:30 Dose: 250 mcg Documented by: Digoxin (Lanoxin) 250 mcg PO ONETIME ONE Stop: 03/29/20 14:01 Last Admin: 03/29/20 14:44 Dose: 250 mcg Documented by: Digoxin (Lanoxin) 250 mcg PO ONETIME ONE Stop: 03/29/20 22:01 Last Admin: 03/29/20 22:24 Dose: 250 mcg Documented by: Diltiazem HCl (Cardizem) 60 mg PO ONETIME ONE Stop: 03/28/20 15:40 Last Admin: 03/28/20 17:41 Dose: Not Given Documented by: Sodium Chloride (Normal Saline) 1,000 mls @ 999 mls/hr IV .BOLUS ONE Stop: 03/29/20 09:25 Last Admin: 03/29/20 09:35 Dose: 999 mls/hr Documented by: Sodium Chloride (Normal Saline) 1,000 mls @ 150 mls/hr IV ASDIRECTED JESUS Stop: 03/29/20 17:10 Last Admin: 03/29/20 10:43 Dose: 150 mls/hr Documented by: Lisinopril (Prinivil) 10 mg PO ONETIME ONE Stop: 03/29/20 00:09 Last Admin: 03/29/20 00:22 Dose: 10 mg Documented by: - Exam General: Reports: Alert, Oriented, Cooperative, No Acute Distress HEENT: Reports: Pupils Equal, Pupils Reactive, EOMI, Mucous Membr. Moist/[place] Neck: Reports: Supple Lungs: Reports: Normal Respiratory Effort Cardiovascular: Reports: Irregular Rhythm Neurological: Reports: No New Focal Deficit Psy/Mental Status: Reports: Alert, Normal Affect, Normal Mood
== END 2020-03-30 11:25 | disposition home or self-care (01) ==
LOC: LL.ED 15:08 → LL.MS 18:13 → UNDOADMOB 18:13 → LL.MS 19:36 → UNDODISOB 03-30 11:25
PROVIDERS: ADMIT Emergency Medicine; ATTEND Emergency Medicine
DX: I48.91 Unspecified atrial fibrillation (principal); I10 Essential (primary) hypertension; E78.00 Pure hypercholesterolemia, unspecified; R79.1 Abnormal coagulation profile; Z79.899 Other long term (current) drug therapy; Z79.01 Long term (current) use of anticoagulants; Z79.82 Long term (current) use of aspirin; Z20.828 Contact with and (suspected) exposure to other viral communicable diseases
CPT/HCPCS: 36415; 71046; 80048; 80053; 80162; 81003; 83735; 83880; 84484; 85025; 85379; 85610; 93005; 96360; 96361; 99285-25; A9270-GY; G0378; J7030; U0002

== ENCOUNTER 2022-01-14 09:15 | Day surgery (SDC) | payer MEDICARE, BC ==
[~2022-01-14 09:15] MED LIST: Lactated Ringers 1,000 ML IV SCH; Propofol 200 MG/20 ML SDV ONE; Sodium Chloride 0.9% 10 ML Syringe FLUSH PRN
[2022-01-14] MEDS ORDERED: Midazolam 1 MG/ML 2 ML SDV IVPUSH ONE (11:10)
== END 2022-01-14 12:50 | disposition home or self-care (01) ==
LOC: LL.SDS 09:15
PROVIDERS: ATTEND Surgery
DX: Z12.11 Encounter for screening for malignant neoplasm of colon (principal); I10 Essential (primary) hypertension; E78.00 Pure hypercholesterolemia, unspecified; I48.19 Other persistent atrial fibrillation; N40.0 Benign prostatic hyperplasia without lower urinary tract symptoms; Z80.0 Family history of malignant neoplasm of digestive organs; Z79.899 Other long term (current) drug therapy
CPT/HCPCS: J2250; J2704; J7120